=== PATIENT | male | born 1930 | race Caucasian/White ===

== ENCOUNTER 2021-03-31 10:36 | Inpatient (IN) | payer OTHER, MEDICAID ==
[~2021-03-31] VITALS: Ht 165.1 cm; Wt 66.2 kg
[2021-03-31 11:15] LABS: BASOPHILS % 0.5 % (0.0-2.0); EOSINOPHILS % 0.3 % (0.0-5.0); HEMATOCRIT. 37.1 % (42.0-52.0); HEMOGLOBIN. 12.8 g/dL (14.0-18.0); LYMPHOCYTES % 12.8 % (20.0-50.0); MEAN CORPUSCULAR HEMOGLOBIN 33.8 pg (28.0-32.0); MEAN CORPUSCULAR VOLUME 97.6 fL (80.0-94.0); MEAN PLATELET VOLUME 8.3 fl (7.4-10.4); NEUTROPHILS % 79.4 % (40.0-76.0); PLATELET 128 x1000/uL (130-400); RED CELL DISTRIBUTION WIDTH 14.4 % (11.6-14.6)
[2021-03-31] MEDS ORDERED: VANCOMYCIN 1 G PREMIX 200 ML IV ONE (11:15)
[2021-03-31] MEDS ORDERED: PIPERACILLIN/TAZ 3.375G PREMIX 50 ML IV ONE (11:15)
[2021-03-31 11:21] LABS: CHLORIDE 103 mEq/L (98-107)
[2021-03-31 11:23] LABS: CLARITY URINE CLEAR (CLEAR); COLOR URINE YELLOW (YELLOW); KETONES URINE NEGATIVE (NEGATIVE); LEUKOCYTE ESTERASE URINE NEGATIVE (NEGATIVE); NITRITE URINE NEGATIVE (NEGATIVE); OCCULT BLOOD URINE TRACE (NEGATIVE); PROTEIN URINE 2+ (NEGATIVE); SPECIFIC GRAVITY URINE 1.019 (1.005-1.030); UROBILINOGEN URINE 0.2 E.U./dL (0.2-1.0)
[2021-03-31 11:26] LABS: INR 1.1; PROTHROMBIN TIME 11.6 sec (9.6-11.0)
[2021-03-31] MEDS ORDERED: ASPIRIN 325MG TABLET PO ONE (13:15)
[2021-03-31 13:44] LABS: CREATINE KINASE MB FRACTION 5.5 ng/mL (0.5-3.6)
[2021-03-31] MEDS ORDERED: ENOXAPARIN 60MG/0.6ML SYR SUBCUT SCH (14:00)
[2021-03-31] MEDS: FUROSEMIDE 40MG/4ML VIAL IVP SCH ×2 (14:25→21:44)
[2021-03-31] MEDS: AMLODIPINE 5MG TABLET PO SCH ×2 (14:25→21:44)
[2021-03-31] MEDS ORDERED: IPRATROPIUM/ALBUTEROL 0.5-3(2.5)MG/3ML NEB HHN NR (14:45)
[2021-03-31] MEDS: IPRATROPIUM/ALBUTEROL 0.5-3(2.5)MG/3ML NEB HHN PRN ×2 (15:02→15:59)
[2021-03-31] MEDS ORDERED: ENOXAPARIN 40MG/0.4ML SYR SUBCUT SCH (16:00)
[2021-03-31] MEDS ORDERED: ACETAMINOPHEN 325MG TABLET PO PRN (16:00)
[2021-03-31] MEDS ORDERED: NALOXONE HCL 0.4MG/ML VIAL IV PRN (16:00)
[2021-03-31] MEDS ORDERED: IPRATROPIUM/ALBUTEROL 0.5-3(2.5)MG/3ML NEB HHN PRN (16:00)
[2021-03-31] MEDS ORDERED: DIPHENHYDRAMINE 50MG/ML VIAL IV PRN (16:00)
[2021-03-31] MEDS ORDERED: MAGNESIUM/ALUMINUM HYDROXIDE/SIMETHICONE 30ML UDC PO PRN (16:00)
[2021-03-31] MEDS ORDERED: ONDANSETRON HCL 4MG/2ML INJ IV PRN (16:00)
[2021-03-31] MEDS ORDERED: LORAZEPAM 2MG/ML CPJ IV PRN (16:00)
[2021-03-31] MEDS ORDERED: MORPHINE SULFATE 2 MG/ML CPJ (NOT FOR IM USE) IV PRN (16:00)
[2021-03-31] MEDS ORDERED: HYDRALAZINE 20MG/ML VIAL IV PRN (16:00)
[2021-03-31] MEDS ORDERED: CLONIDINE 0.1MG TABLET PO PRN (16:00)
[2021-03-31] MEDS ORDERED: GUAIFENESIN 200MG/10ML SUGAR FREE UDC PO PRN (16:00)
[2021-03-31 16:33] LABS: BG BASE EXCESS -5.3 mmol/L (-2.0-2.0); BG CARBOXYHEMOGLOBIN 0.7 % (0.5-1.5); BG DEOXYHEMOGLOBIN 6.4 % (0.0-5.0); BG FRACTION INSPIRED OXYGEN 32; BG HCO3 ACT 19.1 mmol/L (22.0-26.0); BG METHEMOGLOBIN 0.2 % (0.0-1.5); BG OXYGEN SATURATION 93.5 % (92.0-98.5); BG OXYHEMOGLOBIN 92.7 % (94.0-97.0); BG PH 7.368 (7.350-7.450); BG SAMPLE SITE RIGHT RADIAL; BG TOTAL HEMOGLOBIN 13.7 g/dL (12.0-18.0); BG VENT MODE NASAL CANNULA
[2021-03-31 16:54] VITALS: BP 142/80
[2021-03-31] MEDS ORDERED: ALBUTEROL 6.7GM HFA INHALER ORI PRN (17:00)
[2021-03-31] MEDS: METHYLPREDNISOLONE SOD SUCC 40 MG/ML VIAL IV SCH (17:25)
[2021-03-31] MEDS: NITROGLYCERIN OINT 1GM/INCH UDPKT TD SCH ×2 (17:25→21:44)
[2021-03-31 17:35] VITALS: BP 142/80
[2021-03-31] MEDS ORDERED: METO25TA6 MT (18:33)
[2021-03-31] MEDS ORDERED: CHOL400D7 PO (18:33)
[2021-03-31] MEDS ORDERED: FOLI-43 MT (18:33)
[2021-03-31] MEDS ORDERED: OMEP40CA12 PO (18:33)
[2021-03-31] MEDS ORDERED: TAMS-11 MT (18:33)
[2021-03-31] MEDS ORDERED: NEPVIT MT (18:33)
[2021-03-31] MEDS ORDERED: VALS320T16 PO (18:33)
[2021-03-31] MEDS ORDERED: NITR0.4T49 SL (18:33)
[2021-03-31] MEDS ORDERED: HYDR-4134 MT (18:33)
[2021-03-31] MEDS ORDERED: GABA-529 PO (18:33)
[2021-03-31 20:00] VITALS: BP 138/89
[2021-03-31] MEDS: SODIUM CHLORIDE 0.9% INJ 3ML FLUSH IVF SCH ×2 (21:45→22:00)
[2021-04-01] VITALS: BP 130/93
[2021-04-01] MEDS: METHYLPREDNISOLONE SOD SUCC 40 MG/ML VIAL IV SCH ×4 (01:50→23:52)
[2021-04-01] MEDS: NITROGLYCERIN OINT 1GM/INCH UDPKT TD SCH ×6 (01:50→23:52)
[2021-04-01 04:00] VITALS: BP 120/86
[2021-04-01] MEDS: SODIUM CHLORIDE 0.9% INJ 3ML FLUSH IVF SCH (05:38)
[2021-04-01 08:00] VITALS: BP 123/80
[2021-04-01] MEDS: ENOXAPARIN 30MG/0.3ML SYR SUBCUT SCH (08:19)
[2021-04-01] MEDS: FUROSEMIDE 40MG/4ML VIAL IVP SCH ×2 (08:19→18:49)
[2021-04-01] MEDS: AMLODIPINE 5MG TABLET PO SCH ×2 (08:20→21:13)
[2021-04-01 09:09] LABS: HEMATOCRIT. 34.4 % (42.0-52.0); MEAN CORPUSCULAR VOLUME 97.5 fL (80.0-94.0); MEAN PLATELET VOLUME 8.8 fl (7.4-10.4); PLATELET 117 x1000/uL (130-400); RED BLOOD CELL COUNT 3.53 mill/uL (4.7-6.1); RED CELL DISTRIBUTION WIDTH 14.3 % (11.6-14.6)
[2021-04-01 09:28] LABS: T4 FREE 1.3 ng/dL (0.76-1.46)
[2021-04-01 09:42] LABS: VITAMIN B12 SERUM 71 pg/mL (211-911)
[2021-04-01 10:15] VITALS: BP 128/84
[2021-04-01] MEDS ORDERED: CYANOCOBALAMIN 1000MCG/ML VIAL IM SCH (11:00)
[2021-04-01 13:04] LABS: CREATINE KINASE 401 IU/L (39-308)
[2021-04-01 13:27] LABS: PLATELET ESTIMATE SLIGHTLY DECREASED
[2021-04-01] MEDS: IPRATROPIUM/ALBUTEROL 0.5-3(2.5)MG/3ML NEB HHN SCH ×2 (14:32→21:08)
[2021-04-01 16:00] VITALS: BP 108/70
[2021-04-01 20:00] VITALS: BP 113/75
[2021-04-02] VITALS: BP 120/80
[2021-04-02] MEDS: IPRATROPIUM/ALBUTEROL 0.5-3(2.5)MG/3ML NEB HHN SCH ×4 (02:13→21:11)
[2021-04-02 04:00] VITALS: BP 121/74
[2021-04-02] MEDS: NITROGLYCERIN OINT 1GM/INCH UDPKT TD SCH ×6 (04:00→22:19)
[2021-04-02] MEDS: SODIUM CHLORIDE 0.9% INJ 3ML FLUSH IVF SCH ×3 (06:00→21:31)
[2021-04-02] MEDS: ENOXAPARIN 30MG/0.3ML SYR SUBCUT SCH (08:50)
[2021-04-02] MEDS: AMLODIPINE 5MG TABLET PO SCH ×2 (08:50→21:26)
[2021-04-02] MEDS: FUROSEMIDE 40MG/4ML VIAL IVP SCH ×2 (08:50→16:34)
[2021-04-02] MEDS: METHYLPREDNISOLONE SOD SUCC 40 MG/ML VIAL IV SCH ×2 (08:50→16:34)
[2021-04-02 08:58] LABS: HEMATOCRIT. 34.1 % (42.0-52.0); HEMOGLOBIN. 11.6 g/dL (14.0-18.0); MEAN CORPUSCULAR HEMOGLOBIN 33.2 pg (28.0-32.0); MEAN CORPUSCULAR VOLUME 97.4 fL (80.0-94.0); PLATELET 128 x1000/uL (130-400); RED CELL DISTRIBUTION WIDTH 14.4 % (11.6-14.6)
[2021-04-02] MEDS: HYDROCODONE/ACETAMINOPHEN 5/325MG TABLET PO PRN (10:13)
[2021-04-02 12:00] VITALS: BP 114/72
[2021-04-02 12:28] LABS: PLATELET ESTIMATE NORMAL
[2021-04-02 16:00] VITALS: BP 123/77
[2021-04-02 20:00] VITALS: BP 124/81
[2021-04-03] VITALS: BP 120/66
[2021-04-03] MEDS: NITROGLYCERIN OINT 1GM/INCH UDPKT TD SCH ×6 (01:14→21:14)
[2021-04-03] MEDS: METHYLPREDNISOLONE SOD SUCC 40 MG/ML VIAL IV SCH ×3 (01:18→17:24)
[2021-04-03] MEDS: IPRATROPIUM/ALBUTEROL 0.5-3(2.5)MG/3ML NEB HHN SCH ×4 (01:37→21:14)
[2021-04-03 04:00] VITALS: BP 116/68
[2021-04-03] MEDS: SODIUM CHLORIDE 0.9% INJ 3ML FLUSH IVF SCH ×2 (04:44→13:48)
[2021-04-03 06:43] LABS: HEMATOCRIT. 35.5 % (42.0-52.0); HEMOGLOBIN. 12.1 g/dL (14.0-18.0); MEAN CORPUSCULAR HEMOGLOBIN 33.6 pg (28.0-32.0); MEAN CORPUSCULAR VOLUME 98.7 fL (80.0-94.0); MEAN PLATELET VOLUME 9.4 fl (7.4-10.4); PLATELET 133 x1000/uL (130-400); RED CELL DISTRIBUTION WIDTH 14.6 % (11.6-14.6)
[2021-04-03 08:00] VITALS: BP 126/77
[2021-04-03] MEDS: FUROSEMIDE 40MG/4ML VIAL IVP SCH (09:11)
[2021-04-03] MEDS: ENOXAPARIN 30MG/0.3ML SYR SUBCUT SCH (09:11)
[2021-04-03] MEDS: AMLODIPINE 5MG TABLET PO SCH ×2 (09:12→21:14)
[2021-04-03] MEDS ORDERED: DEXTROSE 50% WATER 50ML SYRINGE IV PRN (09:15)
[2021-04-03] MEDS ORDERED: INSULIN REGULAR (HUMULIN R) UD 100 UNITS/ML SYR SUBCUT NR (09:45)
[2021-04-03 12:00] VITALS: BP 118/65
[2021-04-03] MEDS: BLOOD SUGAR DIAGNOSTIC STRIP TEST SCH ×3 (12:13→21:15)
[2021-04-03] MEDS: INSULIN LISPRO 100 UNITS/ML SUBCUT SCH ×3 (12:19→21:00)
[2021-04-03] MEDS ORDERED: INSULIN LISPRO 100 UNITS/ML SUBCUT NR (13:00)
[2021-04-03] MEDS ORDERED: INSULIN GLARGINE UD 100 UNITS/ML SYR SUBCUT NR (14:00)
[2021-04-03 16:00] VITALS: BP 120/70
[2021-04-03 20:21] VITALS: BP 124/69
[2021-04-03 23:30] LABS: PLATELET ESTIMATE NORMAL
[2021-04-04 00:04] VITALS: BP 104/54
[2021-04-04] MEDS: SODIUM CHLORIDE 0.9% INJ 3ML FLUSH IVF SCH ×4 (00:20→21:33)
[2021-04-04] MEDS: METHYLPREDNISOLONE SOD SUCC 40 MG/ML VIAL IV SCH ×3 (00:21→17:51)
[2021-04-04] MEDS: NITROGLYCERIN OINT 1GM/INCH UDPKT TD SCH ×6 (00:21→21:32)
[2021-04-04] MEDS: IPRATROPIUM/ALBUTEROL 0.5-3(2.5)MG/3ML NEB HHN SCH ×4 (01:19→21:06)
[2021-04-04 04:00] VITALS: BP 111/70
[2021-04-04] MEDS: INSULIN LISPRO 100 UNITS/ML SUBCUT SCH ×4 (06:17→21:47)
[2021-04-04] MEDS: BLOOD SUGAR DIAGNOSTIC STRIP TEST SCH ×4 (06:17→21:47)
[2021-04-04 07:09] LABS: HEMATOCRIT. 35.3 % (42.0-52.0); MEAN CORPUSCULAR HEMOGLOBIN 32.8 pg (28.0-32.0); MEAN CORPUSCULAR VOLUME 96.2 fL (80.0-94.0); MEAN PLATELET VOLUME 9.1 fl (7.4-10.4); PLATELET 144 x1000/uL (130-400); RED BLOOD CELL COUNT 3.66 mill/uL (4.7-6.1); RED CELL DISTRIBUTION WIDTH 14.4 % (11.6-14.6)
[2021-04-04 08:00] VITALS: BP 122/79
[2021-04-04] MEDS: INSULIN GLARGINE UD 100 UNITS/ML SYR SUBCUT SCH (10:00)
[2021-04-04] MEDS: FUROSEMIDE 40MG/4ML VIAL IVP SCH (10:34)
[2021-04-04] MEDS: METOLAZONE 2.5MG TABLET PO SCH (10:34)
[2021-04-04] MEDS: AMLODIPINE 5MG TABLET PO SCH ×2 (10:34→21:32)
[2021-04-04] MEDS: ENOXAPARIN 30MG/0.3ML SYR SUBCUT SCH (10:36)
[2021-04-04 11:58] LABS: HEPATITIS B SURFACE ANTIGEN NEGATIVE
[2021-04-04 12:00] VITALS: BP 124/84
[2021-04-04 12:27] LABS: HEPATITIS A AB IGM NEGATIVE (NEGATIVE)
[2021-04-04] MEDS ORDERED: LIDOCAINE HCL 1% 20ML VIAL (Pyxis) INJ ONE (13:15)
[2021-04-04] MEDS: CALCIUM ACETATE 667MG CAPSULE PO SCH ×2 (14:15→17:51)
[2021-04-04 16:00] VITALS: BP 107/87
[2021-04-04 16:06] LABS: PLATELET ESTIMATE NORMAL
[2021-04-04] MEDS: HYDROCODONE/ACETAMINOPHEN 5/325MG TABLET PO PRN (17:51)
[2021-04-04 20:00] VITALS: BP 127/82
[2021-04-05] VITALS: BP 125/70
[2021-04-05] MEDS: NITROGLYCERIN OINT 1GM/INCH UDPKT TD SCH ×6 (00:57→20:00)
[2021-04-05] MEDS: METHYLPREDNISOLONE SOD SUCC 40 MG/ML VIAL IV SCH ×3 (00:57→17:50)
[2021-04-05] MEDS: IPRATROPIUM/ALBUTEROL 0.5-3(2.5)MG/3ML NEB HHN SCH ×4 (02:31→21:11)
[2021-04-05 04:00] VITALS: BP 113/68
[2021-04-05] MEDS: SODIUM CHLORIDE 0.9% INJ 3ML FLUSH IVF SCH ×3 (06:13→20:59)
[2021-04-05] MEDS: INSULIN LISPRO 100 UNITS/ML SUBCUT SCH ×4 (06:15→21:01)
[2021-04-05] MEDS: BLOOD SUGAR DIAGNOSTIC STRIP TEST SCH ×4 (06:15→21:01)
[2021-04-05 06:20] LABS: HEMATOCRIT. 36.7 % (42.0-52.0); HEMOGLOBIN. 12.3 g/dL (14.0-18.0); MEAN CORPUSCULAR HEMOGLOBIN 32.9 pg (28.0-32.0); MEAN CORPUSCULAR VOLUME 98.2 fL (80.0-94.0); MEAN PLATELET VOLUME 9.6 fl (7.4-10.4); PLATELET 108 x1000/uL (130-400); RED BLOOD CELL COUNT 3.74 mill/uL (4.7-6.1); RED CELL DISTRIBUTION WIDTH 14.6 % (11.6-14.6)
[2021-04-05 06:22] LABS: INR 1.1
[2021-04-05 08:00] VITALS: BP 110/64
[2021-04-05] MEDS: METOLAZONE 2.5MG TABLET PO SCH (09:45)
[2021-04-05] MEDS: AMLODIPINE 5MG TABLET PO SCH ×2 (09:45→20:56)
[2021-04-05] MEDS: FUROSEMIDE 40MG/4ML VIAL IVP SCH (09:46)
[2021-04-05] MEDS: CALCIUM ACETATE 667MG CAPSULE PO SCH ×3 (09:49→17:50)
[2021-04-05] MEDS: ENOXAPARIN 30MG/0.3ML SYR SUBCUT SCH (09:50)
[2021-04-05] MEDS: INSULIN GLARGINE UD 100 UNITS/ML SYR SUBCUT SCH (10:27)
[2021-04-05 12:00] VITALS: BP 101/63
[2021-04-05] MEDS: CARVEDILOL 3.125 MG TABLET PO SCH ×2 (14:53→20:55)
[2021-04-05 16:00] VITALS: BP 118/64
[2021-04-05 17:59] LABS: PLATELET ESTIMATE DECREASED
[2021-04-05 20:00] VITALS: BP 104/64
[2021-04-06] VITALS (7 sets, daily range): BP systolic 102–159; BP diastolic 31–75
[2021-04-06] MEDS: METHYLPREDNISOLONE SOD SUCC 40 MG/ML VIAL IV SCH ×3 (00:40→18:12)
[2021-04-06] MEDS: IPRATROPIUM/ALBUTEROL 0.5-3(2.5)MG/3ML NEB HHN SCH ×4 (03:06→21:21)
[2021-04-06] MEDS: NITROGLYCERIN OINT 1GM/INCH UDPKT TD SCH ×6 (04:00→21:15)
[2021-04-06] MEDS: SODIUM CHLORIDE 0.9% INJ 3ML FLUSH IVF SCH ×3 (06:29→22:21)
[2021-04-06 07:17] LABS: HEMOGLOBIN. 12.7 g/dL (14.0-18.0); MEAN CORPUSCULAR HEMOGLOBIN 33.2 pg (28.0-32.0); MEAN CORPUSCULAR VOLUME 96.8 fL (80.0-94.0); MEAN PLATELET VOLUME 8.9 fl (7.4-10.4); PLATELET 98 x1000/uL (130-400); RED BLOOD CELL COUNT 3.82 mill/uL (4.7-6.1); RED CELL DISTRIBUTION WIDTH 14.4 % (11.6-14.6)
[2021-04-06] MEDS: BLOOD SUGAR DIAGNOSTIC STRIP TEST SCH ×4 (07:29→21:17)
[2021-04-06] MEDS: INSULIN LISPRO 100 UNITS/ML SUBCUT SCH ×4 (07:29→21:17)
[2021-04-06] MEDS ORDERED: NITROGLYCERIN 50MCG/ML 10ML VIAL (CATH LAB) IV ONE (08:33)
[2021-04-06] MEDS ORDERED: NICARDIPINE 100MCG/ML 10ML VIAL (CATH LAB) IV ONE (08:33)
[2021-04-06] MEDS ORDERED: HEPARIN SODIUM 1,000 UNIT/1ML VIAL IV ONE (08:33)
[2021-04-06] MEDS: AMLODIPINE 5MG TABLET PO SCH ×2 (09:00→21:14)
[2021-04-06] MEDS: ENOXAPARIN 30MG/0.3ML SYR SUBCUT SCH (09:00)
[2021-04-06] MEDS: METOLAZONE 2.5MG TABLET PO SCH (09:31)
[2021-04-06] MEDS: FUROSEMIDE 40MG/4ML VIAL IVP SCH (09:31)
[2021-04-06] MEDS: CALCIUM ACETATE 667MG CAPSULE PO SCH ×3 (09:31→17:20)
[2021-04-06] MEDS: CARVEDILOL 3.125 MG TABLET PO SCH ×2 (09:32→21:14)
[2021-04-06] MEDS: INSULIN GLARGINE UD 100 UNITS/ML SYR SUBCUT SCH (10:00)
[2021-04-06] MEDS ORDERED: IODIXANOL 320MG/ML 100 ML BOTTLE IV ONE (14:46)
[2021-04-06] MEDS ORDERED: LIDOCAINE HCL 1% 20ML VIAL (Pyxis) INJ ONE (14:46)
[2021-04-06] MEDS ORDERED: ASPIRIN/SOD BICARB/CITRIC ACID 324MG TAB EFF ONE (14:47)
[2021-04-06] MEDS ORDERED: MIDAZOLAM HCL 2 MG/2 ML VIAL ONE (15:15)
[2021-04-06] MEDS ORDERED: FENTANYL CITRATE/PF 50MCG/ML 2ML VIAL ONE (15:15)
[2021-04-06] MEDS ORDERED: ATROPINE SULFATE 1MG/10ML SYR IV PRN (17:00)
[2021-04-06 17:03] LABS: PLATELET ESTIMATE DECREASED
[2021-04-07] VITALS (12 sets, daily range): BP systolic 91–118; BP diastolic 55–78
[2021-04-07] MEDS: NITROGLYCERIN OINT 1GM/INCH UDPKT TD SCH ×6 (01:01→20:00)
[2021-04-07] MEDS: IPRATROPIUM/ALBUTEROL 0.5-3(2.5)MG/3ML NEB HHN SCH ×2 (01:21→14:41)
[2021-04-07] MEDS ORDERED: ALTEPLASE 2MG/VIAL ITC NR ×2 (02:00→02:30)
[2021-04-07] MEDS: METHYLPREDNISOLONE SOD SUCC 40 MG/ML VIAL IV SCH ×3 (02:20→17:57)
[2021-04-07] MEDS: BLOOD SUGAR DIAGNOSTIC STRIP TEST SCH ×4 (06:23→21:00)
[2021-04-07] MEDS: SODIUM CHLORIDE 0.9% INJ 3ML FLUSH IVF SCH ×3 (06:23→22:09)
[2021-04-07 07:01] LABS: HEMATOCRIT. 33.7 % (42.0-52.0); HEMOGLOBIN. 11.7 g/dL (14.0-18.0); MEAN CORPUSCULAR HEMOGLOBIN 33.3 pg (28.0-32.0); MEAN CORPUSCULAR VOLUME 96.3 fL (80.0-94.0); MEAN PLATELET VOLUME 9.6 fl (7.4-10.4); PLATELET 94 x1000/uL (130-400); RED CELL DISTRIBUTION WIDTH 14.8 % (11.6-14.6)
[2021-04-07] MEDS: CALCIUM ACETATE 667MG CAPSULE PO SCH ×3 (07:20→17:56)
[2021-04-07] MEDS: CARVEDILOL 3.125 MG TABLET PO SCH ×2 (08:58→21:00)
[2021-04-07] MEDS: ENOXAPARIN 30MG/0.3ML SYR SUBCUT SCH (08:58)
[2021-04-07] MEDS: METOLAZONE 2.5MG TABLET PO SCH (08:58)
[2021-04-07] MEDS: FUROSEMIDE 40MG/4ML VIAL IVP SCH (08:58)
[2021-04-07] MEDS: INSULIN LISPRO 100 UNITS/ML SUBCUT SCH ×4 (08:59→22:10)
[2021-04-07] MEDS: AMLODIPINE 5MG TABLET PO SCH ×2 (09:00→21:00)
[2021-04-07] MEDS: INSULIN GLARGINE UD 100 UNITS/ML SYR SUBCUT SCH (09:25)
[2021-04-07 13:11] LABS: PLATELET ESTIMATE SLIGHTLY DECREASED
[2021-04-07] MEDS ORDERED: MAGNESIUM 4 G PREMIX 100 ML IV ONE (14:15)
[2021-04-07] MEDS ORDERED: NITROGLYCERIN 0.4MG TABLET SL SL PRN (14:15)
[2021-04-07] MEDS ORDERED: ACETAMINOPHEN 325MG TABLET PO PRN (14:15)
[2021-04-07] MEDS ORDERED: MAGNESIUM 4 G PREMIX 100 ML IV PRN (16:30)
[2021-04-07 20:42] LABS: CLARITY URINE CLEAR (CLEAR); COLOR URINE YELLOW (YELLOW); KETONES URINE NEGATIVE (NEGATIVE); LEUKOCYTE ESTERASE URINE NEGATIVE (NEGATIVE); NITRITE URINE NEGATIVE (NEGATIVE); OCCULT BLOOD URINE NEGATIVE (NEGATIVE); PROTEIN URINE NEGATIVE (NEGATIVE); SPECIFIC GRAVITY URINE 1.013 (1.005-1.030); UROBILINOGEN URINE 0.2 E.U./dL (0.2-1.0)
[2021-04-07] MEDS ORDERED: ALLOPURINOL 300 MG TABLET PO SCH (21:00)
[2021-04-07] MEDS ORDERED: DOCUSATE SODIUM 100MG CAPSULE PO SCH (21:00)
[2021-04-07] MEDS ORDERED: CHLORHEXIDINE GLUCONATE 4% EXTERNAL USE TOP SCH (21:00)
[2021-04-07] MEDS ORDERED: ASCORBIC ACID 500 MG TABLET PO NR (21:00)
[2021-04-07] MEDS ORDERED: BISACODYL 10MG SUPP PR PRN (21:00)
[2021-04-07] MEDS ORDERED: DIPHENHYDRAMINE 25MG CAPSULE PO PRN (21:00)
[2021-04-08] VITALS (12 sets, daily range): BP systolic 108–128; BP diastolic 67–83
[2021-04-08] MEDS: NITROGLYCERIN OINT 1GM/INCH UDPKT TD SCH ×7 (00:53→23:33)
[2021-04-08] MEDS: METHYLPREDNISOLONE SOD SUCC 40 MG/ML VIAL IV SCH ×3 (00:53→17:02)
[2021-04-08] MEDS: IPRATROPIUM/ALBUTEROL 0.5-3(2.5)MG/3ML NEB HHN SCH ×4 (03:47→21:23)
[2021-04-08] MEDS ORDERED: CEFAZOLIN 2,000 MG in DEXT 5% WATER 100 ML IV SCH (04:00)
[2021-04-08] MEDS ORDERED: BLOOD SUGAR DIAGNOSTIC STRIP TEST NR (04:00)
[2021-04-08] MEDS ORDERED: VANCOMYCIN 1 G PREMIX 200 ML IV SCH (04:00)
[2021-04-08] MEDS: SODIUM CHLORIDE 0.9% INJ 3ML FLUSH IVF SCH ×3 (06:27→21:20)
[2021-04-08] MEDS: BLOOD SUGAR DIAGNOSTIC STRIP TEST SCH ×4 (06:28→20:59)
[2021-04-08 06:39] LABS: HEMATOCRIT. 37.8 % (42.0-52.0); HEMOGLOBIN. 12.9 g/dL (14.0-18.0); MEAN CORPUSCULAR HEMOGLOBIN 32.9 pg (28.0-32.0); MEAN CORPUSCULAR VOLUME 96.6 fL (80.0-94.0); MEAN PLATELET VOLUME 9.3 fl (7.4-10.4); PLATELET 89 x1000/uL (130-400); RED BLOOD CELL COUNT 3.91 mill/uL (4.7-6.1); RED CELL DISTRIBUTION WIDTH 14.6 % (11.6-14.6)
[2021-04-08] MEDS: METOLAZONE 2.5MG TABLET PO SCH (08:47)
[2021-04-08] MEDS: CARVEDILOL 3.125 MG TABLET PO SCH ×2 (08:47→21:20)
[2021-04-08] MEDS: CALCIUM ACETATE 667MG CAPSULE PO SCH ×3 (08:47→17:01)
[2021-04-08] MEDS: FUROSEMIDE 40MG/4ML VIAL IVP SCH (08:48)
[2021-04-08] MEDS: AMLODIPINE 5MG TABLET PO SCH ×2 (08:48→21:20)
[2021-04-08] MEDS: ENOXAPARIN 30MG/0.3ML SYR SUBCUT SCH (08:55)
[2021-04-08] MEDS: INSULIN LISPRO 100 UNITS/ML SUBCUT SCH ×4 (08:56→21:00)
[2021-04-08] MEDS: DOCUSATE SODIUM 100MG CAPSULE PO PRN (08:59)
[2021-04-08] MEDS ORDERED: CHLORHEXIDINE GLUCONATE 4% EXTERNAL USE TOP SCH (09:00)
[2021-04-08] MEDS: INSULIN GLARGINE UD 100 UNITS/ML SYR SUBCUT SCH (09:09)
[2021-04-08 10:06] LABS: BG BASE EXCESS -1.8 mmol/L (-2.0-2.0); BG CARBOXYHEMOGLOBIN 0.3 % (0.5-1.5); BG DEOXYHEMOGLOBIN 4.3 % (0.0-5.0); BG FRACTION INSPIRED OXYGEN 21; BG HCO3 ACT 21.5 mmol/L (22.0-26.0); BG METHEMOGLOBIN 0.3 % (0.0-1.5); BG OXYGEN SATURATION 95.7 % (92.0-98.5); BG OXYHEMOGLOBIN 95.1 % (94.0-97.0); BG PCO2 32.5 mmHg (35.0-45.0); BG PH 7.439 (7.350-7.450); BG PO2 78.1 mmHg (75.0-100.0); BG SAMPLE SITE RIGHT BRACHIAL; BG TOTAL HEMOGLOBIN 12.9 g/dL (12.0-18.0); BG VENT MODE ROOM AIR
[2021-04-08 13:08] LABS: PLATELET ESTIMATE DECREASED
[2021-04-09] VITALS (12 sets, daily range): BP systolic 107–164; BP diastolic 63–82
[2021-04-09] MEDS: METHYLPREDNISOLONE SOD SUCC 40 MG/ML VIAL IV SCH ×3 (01:41→17:11)
[2021-04-09] MEDS: IPRATROPIUM/ALBUTEROL 0.5-3(2.5)MG/3ML NEB HHN SCH ×4 (02:11→22:16)
[2021-04-09] MEDS: NITROGLYCERIN OINT 1GM/INCH UDPKT TD SCH ×6 (04:28→23:06)
[2021-04-09] MEDS: SODIUM CHLORIDE 0.9% INJ 3ML FLUSH IVF SCH ×3 (06:01→21:37)
[2021-04-09] MEDS: BLOOD SUGAR DIAGNOSTIC STRIP TEST SCH ×4 (06:42→21:36)
[2021-04-09] MEDS: INSULIN LISPRO 100 UNITS/ML SUBCUT SCH ×4 (06:51→21:00)
[2021-04-09 07:25] LABS: HEMATOCRIT. 36.1 % (42.0-52.0); HEMOGLOBIN. 12.4 g/dL (14.0-18.0); MEAN CORPUSCULAR HEMOGLOBIN 33.3 pg (28.0-32.0); MEAN CORPUSCULAR VOLUME 96.4 fL (80.0-94.0); MEAN PLATELET VOLUME 9.7 fl (7.4-10.4); PLATELET 84 x1000/uL (130-400); RED BLOOD CELL COUNT 3.74 mill/uL (4.7-6.1); RED CELL DISTRIBUTION WIDTH 14.3 % (11.6-14.6)
[2021-04-09] MEDS: CALCIUM ACETATE 667MG CAPSULE PO SCH ×3 (08:05→17:11)
[2021-04-09] MEDS: DOCUSATE SODIUM 100MG CAPSULE PO PRN (08:05)
[2021-04-09] MEDS: METOLAZONE 2.5MG TABLET PO SCH (08:06)
[2021-04-09] MEDS: ENOXAPARIN 30MG/0.3ML SYR SUBCUT SCH (08:06)
[2021-04-09] MEDS: FUROSEMIDE 40MG/4ML VIAL IVP SCH (08:06)
[2021-04-09] MEDS: CARVEDILOL 3.125 MG TABLET PO SCH ×2 (09:00→20:35)
[2021-04-09] MEDS: AMLODIPINE 5MG TABLET PO SCH ×2 (09:00→20:35)
[2021-04-09] MEDS: INSULIN GLARGINE UD 100 UNITS/ML SYR SUBCUT SCH (09:48)
[2021-04-09 12:56] LABS: PLATELET ESTIMATE DECREASED
[2021-04-10] VITALS (10 sets, daily range): BP systolic 107–144; BP diastolic 62–89
[2021-04-10] MEDS: METHYLPREDNISOLONE SOD SUCC 40 MG/ML VIAL IV SCH ×3 (01:47→18:55)
[2021-04-10] MEDS: IPRATROPIUM/ALBUTEROL 0.5-3(2.5)MG/3ML NEB HHN SCH ×4 (02:10→21:10)
[2021-04-10] MEDS: NITROGLYCERIN OINT 1GM/INCH UDPKT TD SCH ×5 (04:00→20:54)
[2021-04-10] MEDS: SODIUM CHLORIDE 0.9% INJ 3ML FLUSH IVF SCH ×3 (06:28→21:23)
[2021-04-10] MEDS: BLOOD SUGAR DIAGNOSTIC STRIP TEST SCH ×4 (06:34→20:56)
[2021-04-10 06:53] LABS: HEMATOCRIT. 37.5 % (42.0-52.0); HEMOGLOBIN. 12.9 g/dL (14.0-18.0); MEAN CORPUSCULAR HEMOGLOBIN 33.1 pg (28.0-32.0); MEAN CORPUSCULAR VOLUME 96.1 fL (80.0-94.0); MEAN PLATELET VOLUME 9.9 fl (7.4-10.4); PLATELET 70 x1000/uL (130-400); RED CELL DISTRIBUTION WIDTH 14.4 % (11.6-14.6)
[2021-04-10] MEDS: INSULIN GLARGINE UD 100 UNITS/ML SYR SUBCUT SCH (09:19)
[2021-04-10] MEDS: CALCIUM ACETATE 667MG CAPSULE PO SCH ×3 (09:20→18:55)
[2021-04-10] MEDS: INSULIN LISPRO 100 UNITS/ML SUBCUT SCH ×4 (09:20→21:30)
[2021-04-10] MEDS: FUROSEMIDE 40MG/4ML VIAL IVP SCH (09:20)
[2021-04-10] MEDS: CARVEDILOL 3.125 MG TABLET PO SCH ×2 (09:20→20:56)
[2021-04-10] MEDS: METOLAZONE 2.5MG TABLET PO SCH (09:21)
[2021-04-10] MEDS: AMLODIPINE 5MG TABLET PO SCH (09:21)
[2021-04-10] MEDS ORDERED: ALTEPLASE 2MG/VIAL ITC ONE ×2 (11:00→11:45)
[2021-04-10] MEDS ORDERED: POTASSIUM CHLORIDE 20MEQ TABLET SR PO NR (12:00)
[2021-04-10] MEDS ORDERED: POTASSIUM CHLORIDE 20MEQ/PACKET PO ONE (12:15)
[2021-04-10 12:28] LABS: PHOSPHORUS 4.5 mg/dL (2.5-4.9)
[2021-04-10 12:59] LABS: PLATELET ESTIMATE DECREASED
[2021-04-10] MEDS ORDERED: MAGNESIUM 2 G PREMIX 50 ML IV NR (14:00)
[2021-04-10] MEDS: DOCUSATE SODIUM 100MG CAPSULE PO PRN (18:55)
[2021-04-10] MEDS: ALLOPURINOL 300 MG TABLET PO SCH (20:54)
[2021-04-10] MEDS ORDERED: DOCUSATE SODIUM 100MG CAPSULE PO SCH (21:00)
[2021-04-10] MEDS ORDERED: CHLORHEXIDINE GLUCONATE 4% EXTERNAL USE TOP SCH (21:00)
[2021-04-10] MEDS ORDERED: ASCORBIC ACID 500 MG TABLET PO NR (21:00)
[2021-04-11] VITALS (58 sets, daily range): BP systolic 55–178; BP diastolic 26–92
[2021-04-11] MEDS: METHYLPREDNISOLONE SOD SUCC 40 MG/ML VIAL IV SCH ×3 (00:32→17:49)
[2021-04-11] MEDS: NITROGLYCERIN OINT 1GM/INCH UDPKT TD SCH ×6 (00:32→20:00)
[2021-04-11] MEDS: IPRATROPIUM/ALBUTEROL 0.5-3(2.5)MG/3ML NEB HHN SCH ×3 (01:00→20:53)
[2021-04-11] MEDS ORDERED: VANCOMYCIN 1 G PREMIX 200 ML IV SCH (04:00)
[2021-04-11] MEDS ORDERED: CEFAZOLIN 2,000 MG in DEXT 5% WATER 100 ML IV SCH (04:00)
[2021-04-11] MEDS ORDERED: BLOOD SUGAR DIAGNOSTIC STRIP TEST NR (04:00)
[2021-04-11] MEDS ORDERED: CHLORHEXIDINE GLUCONATE 4% EXTERNAL USE TOP SCH (05:00)
[2021-04-11] MEDS: ALLOPURINOL 300 MG TABLET PO SCH (05:15)
[2021-04-11] MEDS: SODIUM CHLORIDE 0.9% INJ 3ML FLUSH IVF SCH ×3 (05:16→22:00)
[2021-04-11] MEDS ORDERED: SKIN ADHESIVE 0.7 GM EA TOP ONE (05:28)
[2021-04-11] MEDS ORDERED: THROMBIN (BOVINE) 5000 UNITS/VIAL TOP ONE ×2 (05:29→11:46)
[2021-04-11] MEDS ORDERED: BACITRACIN 50,000 UNITS/VIAL ONE ×2 (05:29→05:47)
[2021-04-11] MEDS ORDERED: HEPARIN 1000 UNITS/ML 10ML ONE ×3 (05:44→12:00)
[2021-04-11] MEDS ORDERED: INSULIN REGULAR (DRIP) 100 UNITS in SODIUM CHLORIDE 0.9% 99 ML IV PRN ×2 (06:00→18:30)
[2021-04-11] MEDS ORDERED: DOBUTAMINE 250 MG PREMIX 250 ML IV PRN (06:00)
[2021-04-11] MEDS ORDERED: PAPAVERINE HCL 180MG in SODIUM CHLORIDE 0.9% 24ML IV PRN (06:00)
[2021-04-11] MEDS ORDERED: NOREPINEPHRINE 8 MG in DEXT 5% WATER 242 ML IV PRN (06:00)
[2021-04-11] MEDS ORDERED: EPINEPHRINE 5 MG in DEXT 5% WATER 245 ML IV PRN (06:00)
[2021-04-11] MEDS ORDERED: NICARDIPINE 40 MG/200 ML PREMIX 200 ML IV PRN (06:00)
[2021-04-11] MEDS ORDERED: DOPAMINE 400 MG PREMIX 250 ML IV PRN (06:00)
[2021-04-11] MEDS ORDERED: DEL NIDO ELECTROLYTE-S(PH 7.4) 1,000 ML IV PRN ×2 (06:00)
[2021-04-11] MEDS ORDERED: FUROSEMIDE 100MG/10ML VIAL IVP SCH (06:15)
[2021-04-11] MEDS: BLOOD SUGAR DIAGNOSTIC STRIP TEST SCH ×8 (06:32→23:45)
[2021-04-11 06:39] LABS: HEMATOCRIT. 38.1 % (42.0-52.0); HEMOGLOBIN. 13.1 g/dL (14.0-18.0); MEAN CORPUSCULAR VOLUME 96.1 fL (80.0-94.0); MEAN PLATELET VOLUME 10.5 fl (7.4-10.4); PLATELET 66 x1000/uL (130-400); RED BLOOD CELL COUNT 3.97 mill/uL (4.7-6.1)
[2021-04-11] MEDS: INSULIN LISPRO 100 UNITS/ML SUBCUT SCH ×3 (06:49→18:20)
[2021-04-11] MEDS: CALCIUM ACETATE 667MG CAPSULE PO SCH ×3 (07:20→17:58)
[2021-04-11] MEDS: CARVEDILOL 3.125 MG TABLET PO SCH ×2 (08:22→20:33)
[2021-04-11] MEDS ORDERED: AMIODARONE HCL 50MG/ML 3ML VIAL IV ONE ×3 (08:23→12:11)
[2021-04-11] MEDS ORDERED: ALBUMIN HUMAN 25GM/100ML (25%) IV ONE (08:23)
[2021-04-11] MEDS ORDERED: MAGNESIUM SULFATE 5GM/10ML VIAL IV ONE (08:23)
[2021-04-11] MEDS ORDERED: POTASSIUM CHLORIDE 20MEQ/PACKET PO NR (08:30)
[2021-04-11] MEDS ORDERED: ACETAMINOPHEN 500MG TABLET ONE (08:33)
[2021-04-11] MEDS: FUROSEMIDE 40MG/4ML VIAL IVP SCH (09:00)
[2021-04-11] MEDS: METOLAZONE 2.5MG TABLET PO SCH (09:00)
[2021-04-11] MEDS ORDERED: FENTANYL CITRATE/PF 50MCG/ML 2ML VIAL ONE (09:10)
[2021-04-11] MEDS ORDERED: ROCURONIUM BROMIDE 10MG/ML VIAL 5ML IV ONE (09:10)
[2021-04-11] MEDS ORDERED: PHENYLEPHRINE HCL 10 MG/ML 1ML (IV VIAL) IV ONE (09:11)
[2021-04-11] MEDS ORDERED: ESMOLOL HCL 10MG/ML 10ML VIAL IV ONE (09:17)
[2021-04-11] MEDS ORDERED: PROPOFOL 200MG/20ML VIAL IV ONE (09:40)
[2021-04-11] MEDS ORDERED: POTASSIUM CHLORIDE INJ 40 MEQ in DEXT 5% WATER 250 ML IV ONE (10:00)
[2021-04-11] MEDS: INSULIN GLARGINE UD 100 UNITS/ML SYR SUBCUT SCH (10:00)
[2021-04-11] MEDS ORDERED: VECURONIUM BROMIDE 10 MG/VIAL IV ONE (10:43)
[2021-04-11] MEDS ORDERED: NITROGLYCERIN 50MG PREMIX 250 ML IV ONE (10:49)
[2021-04-11] MEDS ORDERED: FUROSEMIDE 40MG/4ML VIAL ONE (10:54)
[2021-04-11] MEDS ORDERED: ONDANSETRON HCL 4MG/2ML INJ ONE (12:00)
[2021-04-11] MEDS ORDERED: CALCIUM CHLORIDE 1GM/10ML SYR IV ONE ×2 (12:00→13:57)
[2021-04-11] MEDS ORDERED: GLYCOPYRROLATE 0.2 MG/ML 2ML VIAL ONE (12:03)
[2021-04-11] MEDS ORDERED: DIGOXIN 500MCG/2ML AMP ONE (12:17)
[2021-04-11] MEDS ORDERED: PROTAMINE SULFATE 10MG/ML VIAL 25ML IV ONE (12:49)
[2021-04-11] MEDS ORDERED: AMIODARONE HCL 900 MG in DEXT 5% WATER 500 ML IV PRN (13:00)
[2021-04-11] MEDS ORDERED: VASOPRESSIN 20 UNITS in SODIUM CHLORIDE 0.9% 100 ML IV PRN (13:15)
[2021-04-11] MEDS ORDERED: SODIUM BICARBONATE 8.4% 1 MEQ/ML 50ML SYR IV ONE (13:33)
[2021-04-11] MEDS ORDERED: SODIUM BICARBONATE 8.4% 1 MEQ/ML 50ML SYR IV NR ×2 (13:33→23:30)
[2021-04-11] MEDS ORDERED: KETOROLAC 15MG/ML VIAL IV PRN (13:45)
[2021-04-11] MEDS ORDERED: MAGNESIUM 1 G PREMIX 100 ML IV PRN (13:45)
[2021-04-11] MEDS ORDERED: OXYCODONE HCL/ACETAMINOPHEN 5/325MG TABLET PO PRN ×2 (13:45)
[2021-04-11] MEDS ORDERED: SODIUM CHLORIDE 0.9% 500 ML IV PRN (13:45)
[2021-04-11] MEDS ORDERED: MAGNESIUM 2 G PREMIX 50 ML IV PRN (13:45)
[2021-04-11] MEDS ORDERED: ALBUMIN HUMAN 12.5G/250ML (5%) IV PRN (13:45)
[2021-04-11] MEDS ORDERED: MAGNESIUM SULFATE 3 GM in DEXT 5% WATER 100 ML IV PRN (13:45)
[2021-04-11] MEDS ORDERED: CALCIUM CHLORIDE 3,000 MG in DEXT 5% WATER 250 ML IV PRN (13:45)
[2021-04-11] MEDS ORDERED: ONDANSETRON HCL 4MG/2ML INJ IV PRN (13:45)
[2021-04-11] MEDS ORDERED: ALBUMIN HUMAN 25GM/100ML (25%) IV PRN (13:45)
[2021-04-11] MEDS ORDERED: ACETAMINOPHEN 325MG TABLET PO PRN (13:45)
[2021-04-11] MEDS ORDERED: NEOSTIGMINE METHYLSULFATE 1MG/ML 10 ML VIAL ONE (13:57)
[2021-04-11] MEDS ORDERED: POTASSIUM CHLORIDE INJ 40 MEQ in DEXT 5% WATER 250 ML IV NR (14:00)
[2021-04-11] MEDS: MAGNESIUM HYDROXIDE 400MG/5ML 30ML UDC PO SCH ×3 (14:00→23:15)
[2021-04-11] MEDS ORDERED: NALOXONE HCL 0.4MG/ML VIAL IV PRN (14:15)
[2021-04-11 14:53] LABS: BG BASE EXCESS 0.4 mmol/L (-2.0-2.0); BG CARBOXYHEMOGLOBIN 0.2 % (0.5-1.5); BG DEOXYHEMOGLOBIN 1.5 % (0.0-5.0); BG FRACTION INSPIRED OXYGEN 50; BG METHEMOGLOBIN 0.2 % (0.0-1.5); BG OXYGEN SATURATION 98.5 % (92.0-98.5); BG OXYHEMOGLOBIN 98.1 % (94.0-97.0); BG PCO2 34.4 mmHg (35.0-45.0); BG PH 7.462 (7.350-7.450); BG PO2 196.4 mmHg (75.0-100.0); BG SAMPLE SITE ALINE; BG TOTAL HEMOGLOBIN 8.4 g/dL (12.0-18.0); BG VENT MODE VENT - AC
[2021-04-11] MEDS: CEFAZOLIN 1000MG PREMIX 50 ML IV SCH ×2 (15:00→21:45)
[2021-04-11] MEDS ORDERED: NOREPINEPHRINE 32 MG in DEXT 5% WATER 218 ML IV PRN (15:00)
[2021-04-11] MEDS ORDERED: [UNRECOGNIZED DRUG - REMARK] XX SCH (15:15)
[2021-04-11 15:16] LABS: HEMATOCRIT. 23.2 % (42.0-52.0); HEMOGLOBIN. 7.9 g/dL (14.0-18.0); MEAN CORPUSCULAR HEMOGLOBIN 33.2 pg (28.0-32.0); MEAN CORPUSCULAR VOLUME 97.5 fL (80.0-94.0); MEAN PLATELET VOLUME 10.6 fl (7.4-10.4); RED BLOOD CELL COUNT 2.38 mill/uL (4.7-6.1); RED CELL DISTRIBUTION WIDTH 14.3 % (11.6-14.6)
[2021-04-11 15:20] LABS: PLATELET 43 x1000/uL (130-400)
[2021-04-11] MEDS: CALCIUM CHLORIDE IV NR ×2 (15:47→20:30)
[2021-04-11] MEDS: DEXT 5% IV NR ×2 (15:47→20:30)
[2021-04-11] MEDS: WATER IV NR ×2 (15:47→20:30)
[2021-04-11 15:53] LABS: PLATELET ESTIMATE MARKEDLY DECREASED
[2021-04-11] MEDS ORDERED: SODIUM CHLORIDE 0.9% IV ONE (16:00)
[2021-04-11] MEDS ORDERED: AMINOCAPROIC ACID IV ONE (16:00)
[2021-04-11 16:26] LABS: BG BASE EXCESS -7.4 mmol/L (-2.0-2.0); BG CARBOXYHEMOGLOBIN 0.4 % (0.5-1.5); BG DEOXYHEMOGLOBIN 0.7 % (0.0-5.0); BG FRACTION INSPIRED OXYGEN 50; BG HCO3 ACT 17.4 mmol/L (22.0-26.0); BG METHEMOGLOBIN 0.8 % (0.0-1.5); BG OXYGEN SATURATION 99.3 % (92.0-98.5); BG OXYHEMOGLOBIN 98.1 % (94.0-97.0); BG PCO2 31.4 mmHg (35.0-45.0); BG PH 7.361 (7.350-7.450); BG PO2 368.9 mmHg (75.0-100.0); BG SAMPLE SITE ALINE; BG TOTAL HEMOGLOBIN 5.3 g/dL (12.0-18.0); BG VENT MODE VENT - AC
[2021-04-11] MEDS ORDERED: AMINOCAPROIC ACID 5,000 MG in SODIUM CHLORIDE 0.9% 250 ML IV ONE (17:00)
[2021-04-11] MEDS: EPINEPHRINE 5 MG in DEXT 5% WATER 245 ML IV PRN ×2 (17:44→21:44)
[2021-04-11] MEDS: BACITRACIN 15GM TUBE TOP SCH (17:49)
[2021-04-11] MEDS: DOCUSATE SODIUM 100MG CAPSULE PO SCH (17:49)
[2021-04-11] MEDS: MORPHINE SULFATE 2 MG/ML CPJ (NOT FOR IM USE) IV PRN ×2 (17:58→22:21)
[2021-04-11] MEDS ORDERED: DEXTROSE 50% WATER 50ML SYRINGE IV PRN ×2 (18:45)
[2021-04-11] MEDS: INSULIN REGULAR (DRIP) 100 UNITS in SODIUM CHLORIDE 0.9% 100 ML IV SCH ×2 (18:50→22:53)
[2021-04-11] MEDS: VASOPRESSIN 20 UNIT in SODIUM CHLORIDE 0.9% 99 ML IV PRN ×2 (19:00→21:22)
[2021-04-11] MEDS: NOREPINEPHRINE 32 MG in DEXT 5% WATER 218 ML IV PRN (19:00)
[2021-04-11] MEDS ORDERED: CALCIUM CHLORIDE IV NR (20:00)
[2021-04-11] MEDS ORDERED: DEXT 5% IV NR (20:00)
[2021-04-11] MEDS ORDERED: WATER IV NR (20:00)
[2021-04-11] MEDS: DOPAMINE 400MG/250ML PREMIX 250 ML IV SCH ×2 (20:30→21:45)
[2021-04-11] MEDS ORDERED: AMIODARONE HCL 900 MG in DEXT 5% WATER 482 ML IV PRN (20:45)
[2021-04-11 21:02] LABS: PLATELET ESTIMATE DECREASED
[2021-04-11 22:46] LABS: BG BASE EXCESS -17.3 mmol/L (-2.0-2.0); BG CARBOXYHEMOGLOBIN 0.3 % (0.5-1.5); BG DEOXYHEMOGLOBIN 1.3 % (0.0-5.0); BG FRACTION INSPIRED OXYGEN 50; BG HCO3 ACT 9.1 mmol/L (22.0-26.0); BG METHEMOGLOBIN 0.5 % (0.0-1.5); BG OXYGEN SATURATION 98.7 % (92.0-98.5); BG OXYHEMOGLOBIN 97.9 % (94.0-97.0); BG PCO2 23.8 mmHg (35.0-45.0); BG PH 7.202 (7.350-7.450); BG PO2 224.8 mmHg (75.0-100.0); BG SAMPLE SITE ALINE; BG TOTAL HEMOGLOBIN 7.4 g/dL (12.0-18.0); BG VENT MODE VENT - AC
[2021-04-11] MEDS ORDERED: METHYLPREDNISOLONE 125MG 250 MG in DEXT 5% WATER 100 ML IV NR (23:00)
[2021-04-11] MEDS ORDERED: BUMETANIDE 1MG/4ML VIAL IV NR (23:30)
[2021-04-11] MEDS ORDERED: KCL 10MEQ/50ML PREMIX 150 ML IV PRN (23:45)
[2021-04-11] MEDS ORDERED: KCL 10MEQ/50ML PREMIX 200 ML IV PRN (23:45)
[2021-04-11] MEDS ORDERED: KCL 10MEQ/50ML PREMIX 100 ML IV PRN (23:45)
[2021-04-12] VITALS (76 sets, daily range): BP systolic 70–183; BP diastolic 26–118
[2021-04-12 00:11] LABS: BG BASE EXCESS -16.2 mmol/L (-2.0-2.0); BG CARBOXYHEMOGLOBIN 0.3 % (0.5-1.5); BG DEOXYHEMOGLOBIN 1.1 % (0.0-5.0); BG FRACTION INSPIRED OXYGEN 50; BG HCO3 ACT 9.8 mmol/L (22.0-26.0); BG METHEMOGLOBIN 0.6 % (0.0-1.5); BG OXYGEN SATURATION 98.9 % (92.0-98.5); BG PCO2 23.6 mmHg (35.0-45.0); BG PH 7.235 (7.350-7.450); BG SAMPLE SITE ALINE; BG TOTAL HEMOGLOBIN 5.9 g/dL (12.0-18.0); BG VENT MODE VENT - AC
[2021-04-12] MEDS: EPINEPHRINE 5 MG in DEXT 5% WATER 245 ML IV PRN ×3 (00:12→03:18)
[2021-04-12 00:30] LABS: MEAN CORPUSCULAR HEMOGLOBIN 32.2 pg (28.0-32.0); MEAN CORPUSCULAR VOLUME 99.9 fL (80.0-94.0); MEAN PLATELET VOLUME 8.7 fl (7.4-10.4); RED BLOOD CELL COUNT 1.81 mill/uL (4.7-6.1)
[2021-04-12 00:38] LABS: HEMOGLOBIN. 5.8 g/dL (14.0-18.0)
[2021-04-12 00:39] LABS: HEMATOCRIT. 18.1 % (42.0-52.0); PLATELET 18 x1000/uL (130-400)
[2021-04-12] MEDS: BLOOD SUGAR DIAGNOSTIC STRIP TEST SCH ×12 (00:45→11:45)
[2021-04-12] MEDS: IPRATROPIUM/ALBUTEROL 0.5-3(2.5)MG/3ML NEB HHN SCH ×5 (00:54→12:55)
[2021-04-12] MEDS ORDERED: SODIUM BICARBONATE 8.4% 1 MEQ/ML 50ML SYR IV NR (01:15)
[2021-04-12] MEDS ORDERED: DEXTROSE 50% WATER 50ML SYRINGE IV ONE ×2 (01:17→08:14)
[2021-04-12] MEDS ORDERED: DEXT IV NR (02:00)
[2021-04-12] MEDS ORDERED: SODIUM BICARBONATE IV NR (02:00)
[2021-04-12] MEDS ORDERED: NACL IV NR (02:00)
[2021-04-12] MEDS: MAGNESIUM HYDROXIDE 400MG/5ML 30ML UDC PO SCH ×3 (02:00→10:38)
[2021-04-12] MEDS ORDERED: SODIUM BICARBONATE IV SCH ×3 (02:30→10:00)
[2021-04-12] MEDS ORDERED: WATER IV SCH (02:30)
[2021-04-12] MEDS ORDERED: DEXTROSE 10% IV SCH (02:30)
[2021-04-12] MEDS ORDERED: EPINEPHRINE 20 MG in SODIUM CHLORIDE 0.9% 480 ML IV PRN (03:15)
[2021-04-12] MEDS: NITROGLYCERIN OINT 1GM/INCH UDPKT TD SCH ×4 (04:00→12:00)
[2021-04-12] MEDS: SODIUM CHLORIDE 0.9% INJ 3ML FLUSH IVF SCH (05:03)
[2021-04-12] MEDS: DEXAMETHASONE 10 MG/ML VIAL IV SCH ×2 (05:11→12:44)
[2021-04-12] MEDS: VASOPRESSIN 20 UNIT in SODIUM CHLORIDE 0.9% 99 ML IV PRN ×2 (05:11→12:42)
[2021-04-12] MEDS: CEFAZOLIN 1000MG PREMIX 50 ML IV SCH (05:11)
[2021-04-12 05:56] LABS: HEMATOCRIT. 22.2 % (42.0-52.0); HEMOGLOBIN. 7.4 g/dL (14.0-18.0); MEAN CORPUSCULAR HEMOGLOBIN 31.9 pg (28.0-32.0); MEAN CORPUSCULAR VOLUME 95.6 fL (80.0-94.0); MEAN PLATELET VOLUME 7.9 fl (7.4-10.4); RED BLOOD CELL COUNT 2.32 mill/uL (4.7-6.1); RED CELL DISTRIBUTION WIDTH 14.1 % (11.6-14.6)
[2021-04-12] MEDS: WATER IV PRN ×2 (06:11→12:39)
[2021-04-12] MEDS: EPINEPHRINE IV PRN ×2 (06:11→12:39)
[2021-04-12] MEDS: DEXT 5% IV PRN ×2 (06:11→12:39)
[2021-04-12] MEDS: DOPAMINE 400MG/250ML PREMIX 250 ML IV SCH ×2 (06:29→10:38)
[2021-04-12 06:49] LABS: BG BASE EXCESS -12.2 mmol/L (-2.0-2.0); BG CARBOXYHEMOGLOBIN 0.5 % (0.5-1.5); BG DEOXYHEMOGLOBIN 1.2 % (0.0-5.0); BG FRACTION INSPIRED OXYGEN 50; BG HCO3 ACT 11.8 mmol/L (22.0-26.0); BG OXYGEN SATURATION 98.8 % (92.0-98.5); BG OXYHEMOGLOBIN 98.3 % (94.0-97.0); BG PCO2 21.1 mmHg (35.0-45.0); BG PH 7.364 (7.350-7.450); BG PO2 201.7 mmHg (75.0-100.0); BG SAMPLE SITE ALINE; BG TOTAL HEMOGLOBIN 7.6 g/dL (12.0-18.0); BG VENT MODE VENT - AC
[2021-04-12 06:52] LABS: PLATELET 38 x1000/uL (130-400)
[2021-04-12] MEDS ORDERED: NACL IV SCH ×2 (08:00→10:00)
[2021-04-12] MEDS ORDERED: DEXT IV SCH ×2 (08:00→10:00)
[2021-04-12] MEDS ORDERED: CALCIUM CHLORIDE 1GM/10ML SYR IV ONE (08:14)
[2021-04-12] MEDS ORDERED: SODIUM BICARBONATE 8.4% 1 MEQ/ML 50ML SYR IV ONE (08:14)
[2021-04-12] MEDS ORDERED: EPINEPHRINE 0.1MG/ML (1:10,000) 10ML SYR ONE (08:14)
[2021-04-12] MEDS: CALCIUM ACETATE 667MG CAPSULE PO SCH (08:40)
[2021-04-12] MEDS: DOCUSATE SODIUM 100MG CAPSULE PO SCH (08:40)
[2021-04-12] MEDS: BACITRACIN 15GM TUBE TOP SCH (08:45)
[2021-04-12] MEDS: FUROSEMIDE 40MG/4ML VIAL IVP SCH (09:00)
[2021-04-12] MEDS ORDERED: FAMOTIDINE 20MG/2ML VIAL IV SCH (09:00)
[2021-04-12] MEDS: CARVEDILOL 3.125 MG TABLET PO SCH (09:00)
[2021-04-12] MEDS: METOLAZONE 2.5MG TABLET PO SCH (09:00)
[2021-04-12] MEDS: INSULIN GLARGINE UD 100 UNITS/ML SYR SUBCUT SCH (10:00)
[2021-04-12] MEDS: NOREPINEPHRINE 32 MG in DEXT 5% WATER 218 ML IV PRN (10:02)
[2021-04-12] MEDS ORDERED: POLYVINYL ALCOHOL OPHTH DROPS 15ML BOTHEYE PRN (14:00)
[2021-04-13 16:30] LABS: PLATELET ESTIMATE MARKEDLY DECREASED
[2021-04-13 17:51] LABS: PLATELET ESTIMATE MARKEDLY DECREASED
[2021-04-14] MEDS ORDERED: METHYLPREDNISOLONE SOD SUCC 40 MG/ML VIAL IV SCH (12:00)
== END 2021-04-12 13:48 | DRG 233 ==
LOC: ER 10:36 → 7WST 13:48 → EDBEDREQSVC 15:02 → ENRESERV 16:12 → 8WST 04-01 09:48 → 3WST 04-06 16:33 → CVICU 04-11 09:07
PROVIDERS: ADMIT Internal Medicine; ATTEND Internal Medicine
PROC: 02HV33Z Insertion of Infusion Device into Superior Vena Cava, Percutaneous Approach (ICD-10-PCS; 2021-04-04)
PROC: B518ZZA Fluoroscopy of Superior Vena Cava, Guidance (ICD-10-PCS; 2021-04-04)
PROC: B548ZZA Ultrasonography of Superior Vena Cava, Guidance (ICD-10-PCS; 2021-04-04)
PROC: 5A1D70Z Performance of Urinary Filtration, Intermittent, Less than 6 Hours Per Day (ICD-10-PCS; 2021-04-04)
PROC: 5A1D70Z Performance of Urinary Filtration, Intermittent, Less than 6 Hours Per Day (ICD-10-PCS; 2021-04-05)
PROC: 4A023N7 Measurement of Cardiac Sampling and Pressure, Left Heart, Percutaneous Approach (ICD-10-PCS; principal; 2021-04-06)
PROC: B211YZZ Fluoroscopy of Multiple Coronary Arteries using Other Contrast (ICD-10-PCS; 2021-04-06)
PROC: B215YZZ Fluoroscopy of Left Heart using Other Contrast (ICD-10-PCS; 2021-04-06)
PROC: 5A1D70Z Performance of Urinary Filtration, Intermittent, Less than 6 Hours Per Day (ICD-10-PCS; 2021-04-07)
PROC: 30233K1 Transfusion of Nonautologous Frozen Plasma into Peripheral Vein, Percutaneous Approach (ICD-10-PCS; 2021-04-11)
PROC: 30233N1 Transfusion of Nonautologous Red Blood Cells into Peripheral Vein, Percutaneous Approach (ICD-10-PCS; 2021-04-11)
PROC: 02100Z9 Bypass Coronary Artery, One Artery from Left Internal Mammary, Open Approach (ICD-10-PCS; 2021-04-11)
PROC: 0211093 Bypass Coronary Artery, Two Arteries from Coronary Artery with Autologous Venous Tissue, Open Approach (ICD-10-PCS; 2021-04-11)
PROC: 06BQ4ZZ Excision of Left Saphenous Vein, Percutaneous Endoscopic Approach (ICD-10-PCS; 2021-04-11)
PROC: 02L70ZK Occlusion of Left Atrial Appendage, Open Approach (ICD-10-PCS; 2021-04-11)
PROC: 5A12012 Performance of Cardiac Output, Single, Manual (ICD-10-PCS; 2021-04-12)
PROC: 30233R1 Transfusion of Nonautologous Platelets into Peripheral Vein, Percutaneous Approach (ICD-10-PCS; 2021-04-12)
DX: I21.4 Non-ST elevation (NSTEMI) myocardial infarction (principal); J96.00 Acute respiratory failure, unspecified whether with hypoxia or hypercapnia; N17.0 Acute kidney failure with tubular necrosis; I50.23 Acute on chronic systolic (congestive) heart failure; E87.1 Hypo-osmolality and hyponatremia; E87.4 Mixed disorder of acid-base balance; I13.0 Hypertensive heart and chronic kidney disease with heart failure and stage 1 through stage 4 chronic kidney disease, or unspecified chronic kidney disease; I25.10 Atherosclerotic heart disease of native coronary artery without angina pectoris; D69.6 Thrombocytopenia, unspecified; E78.5 Hyperlipidemia, unspecified; I27.20 Pulmonary hypertension, unspecified; I34.0 Nonrheumatic mitral (valve) insufficiency; N40.0 Benign prostatic hyperplasia without lower urinary tract symptoms; Z20.822 Contact with and (suspected) exposure to COVID-19; K21.9 Gastro-esophageal reflux disease without esophagitis; D64.9 Anemia, unspecified; E83.52 Hypercalcemia; E87.5 Hyperkalemia; I25.5 Ischemic cardiomyopathy; E87.6 Hypokalemia; I44.0 Atrioventricular block, first degree; N18.9 Chronic kidney disease, unspecified; E11.22 Type 2 diabetes mellitus with diabetic chronic kidney disease; Z95.810 Presence of automatic (implantable) cardiac defibrillator; I25.2 Old myocardial infarction; I46.9 Cardiac arrest, cause unspecified
CPT/HCPCS: 36415; 36430; 36556; 36600; 71045; 76604; 76770; 76937; 77001; 80048; 80053; 80061; 81003; 82040; 82150; 82247; 82375; 82550; 82553; 82607; 82805; 82962; 83036; 83540; 83550; 83605; 83735; 83880; 84100; 84145; 84439; 84443; 84481; 84484; 85025; 85044; 86705; 86709; 86803; 86850; 86900; 86920; 86927; 87070; 87340; 87426; 92950; 93005; 93306; 93458; 93880; 93923; 93970; 94003; 94640; 99291; C1729; C1751; C1752; C1758; C1769; C1887; C1893; J0282; J0461; J0690; J1100; J1160; J1265; J1642; J1644; J1650; J1815; J1885; J1940; J2250; J2270; J2370; J2405; J2543; J2704; J2710; J2720; J2920; J2930; J2997; J3010; J3370; J3420; J3475; J3480; J3490; J7050; J7060; L3908; P9016; P9017; P9047; Q9967; U0003; U0005; P9035